=== PATIENT | female | born 1995 | race Two or more races ===

== ENCOUNTER → 2025-03-29 | Outpatient (CLI) | payer OTHER ==
[~2025-03-29] MED LIST: CIPRO100 MG PO; PRENA1 TRUE CO1 EACH
== END | disposition home or self-care (01) ==
LOC: TOM 03-28 07:52
PROVIDERS: ATTEND Student in an Organized Health Care Education/Training Program
DX: R10.20 Pelvic and perineal pain unspecified side (principal); N84.0 Polyp of corpus uteri; D25.9 Leiomyoma of uterus, unspecified; N39.8 Other specified disorders of urinary system